=== PATIENT | female | born 1960 | race African-American/Black ===

== ENCOUNTER 2024-12-28 08:59 | Emergency (ER) | payer MEDICAID, OTHER ==
[~2024-12-28] VITALS: Ht 175.3 cm; Wt 80.0 kg
[2024-12-28 09:06] VITALS: O2SAT 99
[2024-12-28 11:17] LABS: CARBON DIOXIDE 24 mEq/L (21-32); CHLORIDE 101 mEq/L (98-107); POTASSIUM 3.3 mEq/L (3.5-5.1); SODIUM 136 mEq/L (136-145)
[2024-12-28 11:19] LABS: EOSINOPHILS % 0.7 % (0.0-5.0); HEMATOCRIT. 39.8 % (36.0-48.0); HEMOGLOBIN. 13.2 g/dL (12.0-16.0); LYMPHOCYTES % 22.9 % (20.0-50.0); MEAN CORPUSCULAR HEMOGLOBIN 26.9 pg (28.0-32.0); MEAN CORPUSCULAR VOLUME 81.5 fL (81.0-99.0); MEAN PLATELET VOLUME 9.7 fl (7.4-10.4); MONOCYTES % 5.1 % (2.0-8.0); NEUTROPHILS % 70.3 % (40.0-76.0); PLATELET 185 x1000/uL (130-400); RED BLOOD CELL COUNT 4.89 mill/uL (4.2-5.4); RED CELL DISTRIBUTION WIDTH 13.7 % (11.6-14.6); WHITE BLOOD COUNT 7.4 x1000/uL (4.5-11.0)
[2024-12-28 11:23] LABS: CREATININE 1.1 mg/dL (0.6-1.0); GLUCOSE 172 mg/dL (70-105); TROPONIN I HIGH SENSITIVITY 14 ng/L (3.0-34)
[2024-12-28 11:24] LABS: UREA NITROGEN BLOOD 17 mg/dL (9-23)
[2024-12-28 13:13] LABS: TROPONIN I HIGH SENSITIVITY 14 ng/L (3.0-34)
[2024-12-28] MEDS: POTASSIUM CHLORIDE 20MEQ/PACKET PO ONE (13:55)
[2024-12-28 14:13] VITALS: BP 138/77; PULSE 59; RESP 24; TEMP 37; O2SAT 98
== END 2024-12-28 14:26 | disposition short-term general hospital (02) ==
LOC: ER 09:15
DX: R42 Dizziness and giddiness (principal); M54.50 Low back pain, unspecified; R53.1 Weakness; M79.605 Pain in left leg; M79.604 Pain in right leg; E11.9 Type 2 diabetes mellitus without complications; E78.00 Pure hypercholesterolemia, unspecified; I10 Essential (primary) hypertension; Z86.73 Personal history of transient ischemic attack (TIA), and cerebral infarction without residual deficits
CPT/HCPCS: 80048; 83880; 83690; 83735; 85025; 84484; 36415; 71045; 70450; 93970; 93005; 99285; Z7610 ×2